=== PATIENT | male | born 1965 | race Caucasian/White ===

== ENCOUNTER 2019-02-24 14:00 | Emergency (ER) | payer OTHER ==
[~2019-02-24] VITALS: Ht 180.3 cm; Wt 117.9 kg
[2019-02-24] MEDS ORDERED: METO50 PO (14:17)
[2019-02-24] MEDS ORDERED: ASPI81CH PO (14:17)
[2019-02-24] MEDS ORDERED: METF500 (14:18)
[2019-02-24] MEDS ORDERED: OMEPRAZOLE20 MG PO (14:18)
[2019-02-24] MEDS ORDERED: WARF7.5 PO (14:18)
== END 2019-02-24 15:52 | disposition home or self-care (01) ==
LOC: ER 14:00
DX: L23.7 Allergic contact dermatitis due to plants, except food (principal); I10 Essential (primary) hypertension; K21.9 Gastro-esophageal reflux disease without esophagitis; E11.9 Type 2 diabetes mellitus without complications; F17.200 Nicotine dependence, unspecified, uncomplicated; Z91.011 Allergy to milk products; Z79.899 Other long term (current) drug therapy; Z79.82 Long term (current) use of aspirin; Z79.84 Long term (current) use of oral hypoglycemic drugs; Z79.01 Long term (current) use of anticoagulants
CPT/HCPCS: 96372; 99282-25; J3301